=== PATIENT | female | born 1940 | race Caucasian/White ===

== ENCOUNTER → 2023-10-26 13:36 | Outpatient (REF) | payer MEDICARE, OTHER, SELFPAY | LOC: HWRAD 13:36 | PROVIDERS: ATTENDING PHYSICIAN Internal Medicine Cardiovascular Disease; FAMILY PHYSICIAN Family Medicine | DX: R09.89 Other specified symptoms and signs involving the circulatory and respiratory systems (principal) | CPT/HCPCS: 93880 ==

== ENCOUNTER 2025-04-14 08:36 | Day surgery (SDC) | payer MEDICARE, OTHER, SELFPAY ==
[2025-04-14 08:54] VITALS: BP 223/83
[2025-04-14 09:12] VITALS: BP 223/82
[2025-04-14 09:13] VITALS: BMI 29.1
[2025-04-14 09:17] LABS: Blood Urea Nitrogen 17 mg/dl (7-17); Calcium 9.4 mg/dl (8.4-10.2); Carbon Dioxide 30 mmol/L (22-30); Chloride 102 mmol/L (98-107); Estimated Creatinine Clearance 70 ml/min; Glucose 165 mg/dl (70-99); Potassium 4.5 mmol/L (3.5-5.1); Sodium 137 mmol/L (135-145); eGFR > 60.00
--- NOTE | 2025-04-14 09:21 | W.ICD.CONTRA ---
Post ICD/CIGARETTE PAPER TESTER-D
-
History of LA?: No
LV Function
Left ventricular function study result?: Ejection Fraction >/= 40%
ACEI/ARB/ARNI
Patient already on ACEI/ARB/ARNI: No
ACEI/ARB/ARNI Not Indicated: Left Ventricular EF >/= 40%
Beta-Harris
Patient already on Beta Harris: Yes
[2025-04-14 09:27] LABS: Glucose - Point of Care 178 mg/dl (70-99)
[2025-04-14 11:06] VITALS: BP 142/65
[2025-04-14 11:10] VITALS: BP 142/65
--- NOTE | 2025-04-14 11:16 | ITS.CL.ICD ---
Material Handling Warehouse Supervisor - ICD
Implantable Cardioverter Defibrillator
Procedure Report:
Date of Procedure: April 14, 2025.
Procedures: ICD Pulse Generator Explantation, ICD Pulse Generator Implantation, and Pocket Revision.
Indication: Primary prevention ICD. NYHA heart failure class: I for more then 12 months. LVEF 60%. BiV paced QRS duration/type of RBBB, QRS 126 ms. No history of VT/VF. Underlying ischemic cardiomyopathy with improved ejection fraction. No known
history of prior AK. She has a class I indication for pacing. 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 At the time of ICD implant her LVEF was 30%.
Virgil and Dr. Solorio spent time with the patient in the office and shared decision making was employed before the patient chose to proceed with biventricular ICD generator change.
Performing physician: Hilario Zapien MD, [facility].
Implant: ICD Pulse Generator: Medtronic; Model# [id number]; Serial# [id number].
Explanted ICD Pulse Generator (Implanted 03/15/2018): Medtronic; Model# [id number]; Serial# [id number].
Retained RA Lead (Implanted 03/15/2018): Medtronic; Model# 5076-52cm; Serial# [id number].
Retained RV Lead (Implanted 03/15/2018 : Medtronic; Model# [id number]; Serial# [id number].
Retained LV Lead (Implanted 03/15/2018): Medtronic; Model# 4298-88cm; Serial# [id number].
Technique: A time-out was performed. The procedure site was identified. The anesthesia service anesthetized the patient. Preoperative cefazolin was administered before the skin incision. The patient was prepped and draped in the usual fashion. Local
anesthetic was applied to the left pre-pectoral subcutaneous tissue. A 3-inch incision was made over the pulse generator. The capsule was entered with Bovie cautery. The old ICD pulse generator was explanted. No Bovie cautery was applied to the lead
system. The leads were appropriately attached to the new ICD pulse generator. The pocket was revised to allow the new device to be inserted. The pocket was irrigated with an antibiotic solution. Hemostasis was excellent. The device and leads were
placed in the pocket. A Cloudmach, TYRX Absorbable Antibacterial Envelope was placed in the pocket, (Ref [id number]; Lot [id number]). The incision was closed in three layers with an absorbable suture. Steri-strips and a silver impregnated dressing were
applied. The estimated blood loss was less than 5 mL. There were no complications. No fluoroscopy was used.
Lead Analysis:
RA lead: P: 2.6mV; Threshold: 0.75 V @ 0.4 ms; Impedance: 380 ohms.
RV lead: R: n/a; Threshold: 0.75 V @ 0.4 ms; Impedance: 450 ohms.
LV lead: R: n/a; Threshold: 1.75 V @ 0.4 ms; Impedance: 430 ohms.
Final Programming: VT/VF 188 bpm; Jese: DDDR 60-130 bpm.
Conclusion: Uncomplicated ICD change. The ICD system is MRI safe/conditional.
Recommendation: Routine post ICD care.
cc: Abebe Solorio MD, Dimas Herman MD, and Caity Harris MD.
[2025-04-14] MEDS: TYLENOL 650 MG PO (11:58)
[2025-04-14 12:06] VITALS: BP 174/57
== END 2025-04-14 12:23 | disposition home or self-care (01) ==
LOC: CATH 08:36
PROVIDERS: ATTENDING PHYSICIAN Internal Medicine Cardiovascular Disease; FAMILY PHYSICIAN Family Medicine; OTHER PHYSICIAN Internal Medicine Cardiovascular Disease
DX: Z45.02 Encounter for adjustment and management of automatic implantable cardiac defibrillator (principal); I50.9 Heart failure, unspecified; I45.10 Unspecified right bundle-branch block; I25.5 Ischemic cardiomyopathy; I44.2 Atrioventricular block, complete; Z95.2 Presence of prosthetic heart valve; Z79.82 Long term (current) use of aspirin; Z79.899 Other long term (current) drug therapy; Z79.84 Long term (current) use of oral hypoglycemic drugs
CPT/HCPCS: 33264; 80048; 82962; C1882